=== PATIENT | male | born 1970 | race Caucasian/White ===

== ENCOUNTER → 2017-05-25 | Outpatient (REF) ==
[~2017-05-25] MED LIST: CLINDAMYCIN300 MG PO; INDOCIN SR 75MG75 MG PO; METOPROLOL SR50 MG PO; MOTRIN600 MG PO; NORCO 325 MG-51 TAB PO; PEPCID 20MG TAB20 MG PO; PRINIVIL20 MG PO
== END ==
LOC: WSOH 16:00
DX: Z02.89 Encounter for other administrative examinations (principal)

== ENCOUNTER → 2019-07-22 | Outpatient (CLI) | payer OTHER ==
[~2019-07-22] MED LIST changes: +ASPIRIN 81M81 MG/TA2 PO; +DEMADEX 20MG20 M1 PO; +ENTRESTO 49 MG1 EACH PO; +LIPITOR 40MG TA40 MG PO; +NORVASC 5MG5 MG/TAB PO; +TOPROL XL 25MG25 MG PO
== END ==
LOC: COL.RAD 09:58 → COL.LAB 09:58
DX: M77.31 Calcaneal spur, right foot (principal)

== ENCOUNTER 2020-05-12 08:14 | Emergency (ER) | payer OTHER ==
[~2020-05-12] VITALS: Ht 170.2 cm; Wt 77.3 kg
[2020-05-12 08:14] VITALS: TEMP 98.1
[2020-05-12] MEDS ORDERED: ASPIRIN 32325 MG/TAB PO (08:29)
[2020-05-12] MEDS ORDERED: NORVASC 10MG10 MG PO (08:29)
[2020-05-12] MEDS ORDERED: TOPROL XL100 MG PO (08:39)
[2020-05-12] MEDS ORDERED: DEMADEX10 MG PO (08:40)
[2020-05-12 08:45] LABS: HEMATOCRIT 43.9 % (42.0-52.0); MEAN CELL VOLUME 87 fl (80.0-100.0); MEAN CORPUSCULAR HEMOGLOBIN 30 pg (27.0-31.0); MEAN CORPUSCULAR HGB CONC 34 g/dl (33.0-37.0); MEAN PLATELET VOLUME 9.3 fl (7.4-10.4); PLATELET COUNT 296 K/mm3 (130-400); RED BLOOD COUNT 5.05 M/mm3 (4.20-5.60); REDCELL DISTRIBUTION WIDTH-CV 11.9 % (11.5-14.5)
[2020-05-12 08:59] LABS: ALBUMIN 3.7 gm/dL (3.5-5.0); BILIRUBIN,TOTAL 0.7 mg/dL (0.0-1.0); CALCIUM 8.7 mg/dL (8.4-10.2); CREATININE, serum 1.36 (0.66-1.25); TOTAL PROTEIN 7.9 gm/dL (6.4-8.2)
[2020-05-12 09:10] LABS: C-REACTIVE PROTEIN 25.4 mg/dL (0.0-0.9)
[2020-05-12 09:33] LABS: BAND 7 % (0-10); BASOPHIL 1 % (0-2); LYMPHOCYTE 11 % (20.0-51.0); NEUTROPHILS 73 % (42.0-75.2); PLATELET ESTIMATE NORMAL (NORMAL)
[2020-05-12 09:43] LABS: SYNOVIAL FL. MONONUCLEAR 8.7 % (0-75); SYNOVIAL FLUID RBC 43000 /mm3 (0-0); SYNOVIAL FLUID WBC 18327 /mm3 (200-600)
[2020-05-12 09:45] LABS: SYNOVIAL FLUID APPEARANCE HAZY; SYNOVIAL FLUID COLOR RED
[2020-05-12 11:02] VITALS: BP 139/83; PULSE 92
[2020-05-13] MEDS ORDERED: PREDNISONE20 MG PO (14:42)
[2020-05-13] MEDS ORDERED: NORCO 325 MG-51 TAB PO (14:42)
== END 2020-05-12 11:24 | disposition home or self-care (01) ==
LOC: COL.ER 08:14
PROVIDERS: Emergency Medicine
DX: M25.561 Pain in right knee (principal); M25.562 Pain in left knee; I10 Essential (primary) hypertension; I50.9 Heart failure, unspecified; Z79.82 Long term (current) use of aspirin
CPT/HCPCS: J2270; J7040

== ENCOUNTER → 2020-08-12 | Outpatient (CLI) | payer OTHER ==
[~2020-08-12] MED LIST changes: +ASPIRIN 32325 MG/TAB PO; +DEMADEX10 MG PO; +NORVASC 10MG10 MG PO; +PREDNISONE20 MG PO; +TOPROL XL100 MG PO
[2020-08-12 11:20] LABS: ALBUMIN 4.3 gm/dL (3.5-5.0); BILIRUBIN,TOTAL 0.5 mg/dL (0.0-1.0); CHOLESTEROL RISK RATIO 2.9; CREATININE, serum 1.28 (0.66-1.25); POTASSIUM 3.6 mmol/L (3.4-5.0); TOTAL PROTEIN 7.8 gm/dL (6.4-8.2); URIC ACID 5.6 mg/dL (3.5-8.5)
[2020-08-12 11:48] LABS: THYROID STIMULATING HORMONE 1.03 uIU/mL (0.465-4.680)
== END ==
LOC: COL.LAB 09:39
PROVIDERS: Family Medicine
DX: Z13.29 Encounter for screening for other suspected endocrine disorder (principal); E78.5 Hyperlipidemia, unspecified; M10.9 Gout, unspecified

== ENCOUNTER → 2020-12-06 | Outpatient (CLI) | payer OTHER | LOC: COL.RAD | DX: R79.89 Other specified abnormal findings of blood chemistry (principal) ==

== ENCOUNTER → 2021-01-05 | Outpatient (CLI) | payer OTHER | LOC: COL.VAS 12:05 | DX: R79.89 Other specified abnormal findings of blood chemistry (principal) ==

== ENCOUNTER 2024-06-12 09:51 | Inpatient (IN) | payer OTHER ==
[2024-06-12] VITALS (324 sets, daily range): BP systolic 145–186; BP diastolic 91–134; PULSE 89–109; TEMP 98–98.1; O2SAT 89–100
[~2024-06-12] VITALS: Ht 170.2 cm; Wt 77.7 kg
[2024-06-12 10:30] LABS: ARTERIAL BLD GAS O2 SATURATION 96.7 % (92-100); ARTERIAL BLOOD GAS BASE EXCESS -5.6 (-2-2); ARTERIAL BLOOD GAS HCO3 14.4 meq/L (22-26); ARTERIAL BLOOD GAS PO2 81.7 mmHg (80-100)
[2024-06-12 10:31] LABS: ARTERIAL BLOOD GAS PCO2 18.9 mmHg (35-45)
[2024-06-12 10:40] LABS: ALBUMIN 2.9 g/dL (3.5-5.0); BILIRUBIN,TOTAL 2.5 mg/dL (0.2-1.2); CALCIUM 8.9 mg/dL (8.4-10.2); CREATININE, serum 2.57 mg/dL (0.72-1.25); POTASSIUM 3.5 mEq/L (3.5-4.5); TOTAL PROTEIN 6.4 g/dl (6.2-8.1)
[2024-06-12 10:49] LABS: HEMATOCRIT 50.7 % (42.0-52.0); HEMOGLOBIN 16.5 g/dl (13.5-18.0); MEAN CELL VOLUME 88 fl (80.0-100.0); MEAN CORPUSCULAR HEMOGLOBIN 29 pg (27-31); MEAN CORPUSCULAR HGB CONC 33 g/dl (33.0-37.0); MEAN PLATELET VOLUME 9.8 fl (7.4-10.4); PLATELET COUNT 174 K/mm3 (130-400); RED BLOOD COUNT 5.75 M/mm3 (4.20-5.60); REDCELL DISTRIBUTION WIDTH-CV 15.3 % (11.5-14.5)
[2024-06-12 11:07] LABS: TROPONIN-I 0.625 ng/mL (0.00-0.033)
[2024-06-12 11:30] LABS: THYROID STIMULATING HORMONE 4.561 uIU/mL (0.350-4.940)
[2024-06-12] MEDS ORDERED: hydrALAZINE 20 MG/ML 1 ML VIAL IV ONE (11:30)
[2024-06-12] MEDS ORDERED: niCARdipine 200 ML IV ONE (11:45)
[2024-06-12] MEDS ORDERED: Furosemide 40 MG/4 ML VIAL IV ONE (11:45)
[2024-06-12 13:22] LABS: URINE APPEARANCE CLEAR (CLEAR/HAZY); URINE BLOOD 2+ (NEGATIVE); URINE COLOR YELLOW (YELLOW); URINE GLUCOSE NEGATIVE (NEGATIVE); URINE KETONE NEGATIVE (NEGATIVE); URINE NITRATE NEGATIVE (NEGATIVE); URINE PROTEIN(semi-quant) 3+ (NEGATIVE)
[2024-06-12 13:42] LABS: URINE WBC 0-2 /hpf (0-2)
[2024-06-12 13:43] LABS: MUCOUS PRESENT (NOT PRESENT); SQUAMOUS EPITHELIAL 0-2 /hpf (0-10); URINE BACTERIA OCCASIONAL /hpf (NONE SEEN)
[2024-06-12 13:44] LABS: COLLECTION METHOD CLEAN CATCH
[2024-06-12] MEDS ORDERED: Acetaminophen 325 MG TAB PO PRN (14:45)
[2024-06-12] MEDS ORDERED: Ondansetron 4 MG/2 ML VIAL IV PRN (14:45)
[2024-06-12] MEDS ORDERED: Heparin 5,000 UNITS/ML 1 ML VIAL SQ SCH (16:00)
[2024-06-12] MEDS ORDERED: Furosemide 100 MG in NS 100 ML IV SCH (16:30)
[2024-06-12] MEDS ORDERED: Carvedilol 3.125 MG TAB PO SCH (17:00)
--- NOTE | 2024-06-12 20:00 | NUR ---
Pt resting quietly in bed. VSS. IV infusing to L AC with lasix gtt per order. Pt does not complain of pain or discomfort at this time. Evening assessment completed with difficulty. Evening medications administered without difficulty. Pt able to reposition self on own. Urinal at bedside that pt has been using without difficulty. Will continue to monitor edema levels in UE, LE, and trunk areas. Pt does not have any questions or concerns at this time.
[2024-06-12] MEDS ORDERED: Atorvastatin 80 MG TAB PO SCH (21:00)
[2024-06-13] VITALS (699 sets, daily range): BP systolic 107–163; BP diastolic 70–123; PULSE 75–99; TEMP 97.8–98.4; O2SAT 84–100
[2024-06-13 04:26] LABS: BASO # 0.1 K/mm3 (0.0-0.2); BASO % 1.4 % (0.0-2.0); EOS # 0.4 K/mm3 (0.0-0.7); EOS % 7.4 % (0.0-4.0); GRAN # 3.2 K/mm3 (1.4-6.5); HEMATOCRIT 41.6 % (42.0-52.0); LYMPH # 1.7 K/mm3 (1.2-3.4); LYMPH % 29.8 % (20.0-51.0); MEAN CELL VOLUME 86 fl (80.0-100.0); MEAN CORPUSCULAR HEMOGLOBIN 29 pg (27-31); MEAN CORPUSCULAR HGB CONC 34 g/dl (33.0-37.0); MEAN PLATELET VOLUME 9.9 fl (7.4-10.4); MONO # 0.4 K/mm3 (0.1-0.6); MONO % 7.2 % (1.7-9.3); PLATELET COUNT 144 K/mm3 (130-400); RED BLOOD COUNT 4.82 M/mm3 (4.20-5.60); REDCELL DISTRIBUTION WIDTH-CV 14.6 % (11.5-14.5)
[2024-06-13 04:43] LABS: ALBUMIN 2.4 g/dL (3.5-5.0); BILIRUBIN,TOTAL 2.1 mg/dL (0.2-1.2); CALCIUM 8.1 mg/dL (8.4-10.2); CREATININE, serum 2.22 mg/dL (0.72-1.25); TOTAL PROTEIN 5.2 g/dl (6.2-8.1)
[2024-06-13] MEDS ORDERED: *Potassium Replacement Protocol MC SCH (05:00)
[2024-06-13] MEDS ORDERED: Spironolactone 25 MG TAB PO SCH (09:00)
[2024-06-13] MEDS ORDERED: Carvedilol 3.125 MG TAB PO ONE (09:00)
--- NOTE | 2024-06-13 09:25 | NUR ---
STUDENT VERIFIED MEDS WITH STAFF NURSE, WAYNE PADILLA.
[2024-06-13] MEDS ORDERED: hydrALAZINE 20 MG/ML 1 ML VIAL IV PRN (13:00)
--- NOTE | 2024-06-13 14:59 | NUR ---
hot tamale worker met with patient to discuss discharge planning. 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 Patient plans to return home and back to work when he is medically cleard to do so. Patient is not and does not have any children. Worker provided written and verbal information on advance directives and [place] legal services as patient needs to do Will planning. Patient states he hasn't been taking his medications due to cost and states Entresto is not covered and too expensive for him. Worker advised that we could assist with Hospital financial program if needed. Will follow and determine medications upon discharge for assistance. Patient's primary care provider is Dr Gary. Discharge planning: Home and return to work.
--- NOTE | 2024-06-13 16:00 | NUR ---
Pt arrived to medical floor from ICU, report received from WAYNE Mercer. Pt is A&O x4. Shift assessment completed. +2 BLE edema noted. Lung sounds clear to auscultation. BS active x4. Pt denies pain at this time rating 0/10. VSS. Oriented pt to room, call light, and bathroom. Pt has no request at this time. Call light within reach.
[2024-06-13] MEDS ORDERED: Carvedilol 6.25 MG TAB PO SCH (17:00)
--- NOTE | 2024-06-13 21:30 | NUR ---
Scheduled meds administered per NOV. Shift assessment complete. Noted edema to BLE pitting +1. Pt. states swelling is improving. Pt. denies pain at this time. No further outstanding findings. Pt. resting in recliner w/ call light in reach. No complaints or requests at this time.
[2024-06-14 04:00] VITALS: BP 127/86; PULSE 78; TEMP 97.4
--- NOTE | 2024-06-14 04:53 | NUR ---
Pt. rested in recliner through the night w/ eyes closed at various times; respirations even and unlabored. Pt. denied pain or requests during the night. Currently resting in recliner w/ eyeys open at this time. Call light in reach.
[2024-06-14 06:37] LABS: BASO % 0.6 % (0.0-2.0); EOS # 0.4 K/mm3 (0.0-0.7); EOS % 6.8 % (0.0-4.0); GRAN # 3.1 K/mm3 (1.4-6.5); GRAN % 58.7 % (42.2-75.2); HEMATOCRIT 42.3 % (42.0-52.0); LYMPH # 1.4 K/mm3 (1.2-3.4); LYMPH % 26.7 % (20.0-51.0); MEAN CELL VOLUME 87 fl (80.0-100.0); MEAN CORPUSCULAR HEMOGLOBIN 29 pg (27-31); MEAN CORPUSCULAR HGB CONC 33 g/dl (33.0-37.0); MEAN PLATELET VOLUME 10.1 fl (7.4-10.4); MONO # 0.4 K/mm3 (0.1-0.6); PLATELET COUNT 154 K/mm3 (130-400); RED BLOOD COUNT 4.84 M/mm3 (4.20-5.60); REDCELL DISTRIBUTION WIDTH-CV 14.7 % (11.5-14.5)
[2024-06-14 06:53] LABS: ALBUMIN 2.2 g/dL (3.5-5.0); BILIRUBIN,TOTAL 1.5 mg/dL (0.2-1.2); CALCIUM 7.6 mg/dL (8.4-10.2); CREATININE, serum 2.14 mg/dL (0.72-1.25); POTASSIUM 3.2 mEq/L (3.5-4.5)
--- NOTE | 2024-06-14 06:58 | NUR ---
Bedside report received from ROSANNE Sparks. Pt resting in bed with eyes closed and no complaints. Call light within reach.
[2024-06-14 08:00] VITALS: BP 147/95; PULSE 84; TEMP 97.7
[2024-06-14] MEDS ORDERED: Potassium Bicarbonate/Citrate 20 MEQ Effervescent TAB PO SCH (09:00)
--- NOTE | 2024-06-14 09:52 | NUR ---
Pt awake in bed visiting with mother at bedside. Shift assssment completed. VSS. +2 BLE edema noted in assessment. Lasix gtt infusing into Rt forearm as ordered with no complications. INT to Lt AC patent with no swelling, redness, or drainage. Pt ambulates independently in room with no complications. Tele monitor Max called this nurse stating leads were off pt. Pt assessed and leads back in place. Pt has no request at this time. Call light within reach.
[2024-06-14 10:18] LABS: CHOLESTEROL RISK RATIO 4.2
[2024-06-14 11:47] VITALS: BP 144/96; PULSE 85; TEMP 98.4
--- NOTE | 2024-06-14 12:09 | NUR ---
Data: Patient accepted spiritual care visit offered during Heading And Priming Operator rounds. 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 Assessment: Reflecting on the meaning of this illness. Plan of Care: Heading And Priming Operator provided pastoral counseling; supportive listening; and prayer. Chaplains will remain available as needed/requested while Patient is admitted to this hospital.
[2024-06-14 15:40] VITALS: BP 131/91; PULSE 84; TEMP 97.9
--- NOTE | 2024-06-14 19:00 | NUR ---
Bedside report given to ROSANNE Sparks. Pt awake in bed with no complaints. Call light within reach.
[2024-06-14 20:00] VITALS: BP 125/86; PULSE 79; TEMP 97.9
--- NOTE | 2024-06-14 20:45 | NUR ---
Scheduled meds administered per NOV. Shift assessment complete. BLE are edematous pitting +2. Bowel sounds are hypoactive. Pt. states he is not passing much flatus; however, pt. endorses BM earlier today. No further outstanding findings. Pt. denies pain at this time. No complaints or requests. Call light in reach.
--- NOTE | 2024-06-14 22:00 | NUR ---
Pt. called to report he was bleeding. Upon exam pt's IV to Rt. forearm had come out of place. Stopped IV meds and discontinued IV. Catheter tip intact. Site dressed w/ gauze and tape. Attempted to flush pt's IV at Lt antecubital and noted leaking from site. Discontinued second IV. Catheter tip intact. Site dressed w/ gauze and coban. Inserted new IV- 20g to Rt. forearm. Pt. tolerated well. IV lasiks resumed.
[2024-06-15] VITALS (10 sets, daily range): BP systolic 115–148; BP diastolic 72–106; PULSE 77–84; TEMP 97.3–98.6
--- NOTE | 2024-06-15 01:35 | NUR ---
PCT reported pt.'s BP was 144/106. This nurse reassessed pt. Upon entry he is resting in bed w/ eyes closed; respirations even and unlabored. Pt. denies headache, states he feels, "fine." BP is 148/106. RN administered PRN Hydralazine per NOV. This nurse reassessed pt. BP is now 117/72. Pt. resting in bed w/ call light in reach.
--- NOTE | 2024-06-15 05:09 | NUR ---
Pt. rested soundly through the night with eyes closed, respirations even and unlabored. Blood pressure remained at pt's baseline following hydralazine administration. No complaints or requests. Call light in reach.
[2024-06-15 06:44] LABS: BASO % 0.6 % (0.0-2.0); EOS # 0.3 K/mm3 (0.0-0.7); EOS % 6.5 % (0.0-4.0); GRAN # 2.4 K/mm3 (1.4-6.5); GRAN % 51.4 % (42.2-75.2); HEMATOCRIT 38.9 % (42.0-52.0); HEMOGLOBIN 13.4 g/dl (13.5-18.0); LYMPH # 1.6 K/mm3 (1.2-3.4); LYMPH % 33.1 % (20.0-51.0); MEAN CELL VOLUME 86 fl (80.0-100.0); MEAN CORPUSCULAR HEMOGLOBIN 30 pg (27-31); MEAN CORPUSCULAR HGB CONC 34 g/dl (33.0-37.0); MEAN PLATELET VOLUME 9.3 fl (7.4-10.4); MONO # 0.4 K/mm3 (0.1-0.6); MONO % 8.2 % (1.7-9.3); PLATELET COUNT 145 K/mm3 (130-400); RED BLOOD COUNT 4.54 M/mm3 (4.20-5.60); REDCELL DISTRIBUTION WIDTH-CV 14.6 % (11.5-14.5)
[2024-06-15 07:09] LABS: ALBUMIN 2.4 g/dL (3.5-5.0); BILIRUBIN,TOTAL 1.2 mg/dL (0.2-1.2); CALCIUM 7.2 mg/dL (8.4-10.2); CREATININE, serum 2.21 mg/dL (0.72-1.25); POTASSIUM 3.6 mEq/L (3.5-4.5); TOTAL PROTEIN 5.2 g/dl (6.2-8.1)
[2024-06-15] MEDS ORDERED: Potassium Bicarbonate/Citrate 20 MEQ Effervescent TAB PO SCH (07:30)
--- NOTE | 2024-06-15 09:37 | NUR ---
PT RESTING IN BED, ALERT AND ORIENTEDX4. NO COMPLAINTS OF PAIN AT THIS TIME. ASSESSED PT. PITTING EDEMA IN BILATERAL LOWER EXTREMETIES. LASIX DRIP RUNNING AT 11. PT BP WAS 143/100. GAVE HYDRALAZINE. BP WENT DOWN TO 119/77. REPLACING POTASSIUM ORALLY. GAVE MORNING MEDS. NO OTHER COMPLAINTS AT THIS TIME. CALL LIGHT WITHIN REACH.
[2024-06-15] MEDS ORDERED: Carvedilol 6.25 MG TAB PO ONE (10:30)
[2024-06-15] MEDS ORDERED: Magnesium Sulfate 8% 50 ML IV ONE (16:45)
[2024-06-15] MEDS ORDERED: Furosemide 40 MG/4 ML VIAL IV SCH (17:00)
[2024-06-15] MEDS ORDERED: Carvedilol 6.25 MG TAB PO SCH (17:00)
--- NOTE | 2024-06-15 21:15 | NUR ---
Patient resting in bed. Denies any pain. Snack provided. Assessment complete. IV in left forearm flushes easlily without complications. Call light and personal items in reach. Bed in low position.
[2024-06-16] VITALS (12 sets, daily range): BP systolic 116–144; BP diastolic 80–95; PULSE 67–77; TEMP 97.4–98.4
[2024-06-16 07:09] LABS: BASO % 0.6 % (0.0-2.0); EOS # 0.3 K/mm3 (0.0-0.7); EOS % 6.4 % (0.0-4.0); GRAN # 2.2 K/mm3 (1.4-6.5); GRAN % 45.9 % (42.2-75.2); HEMATOCRIT 41.2 % (42.0-52.0); HEMOGLOBIN 13.9 g/dl (13.5-18.0); LYMPH # 1.9 K/mm3 (1.2-3.4); LYMPH % 38.7 % (20.0-51.0); MEAN CELL VOLUME 86 fl (80.0-100.0); MEAN CORPUSCULAR HEMOGLOBIN 29 pg (27-31); MEAN CORPUSCULAR HGB CONC 34 g/dl (33.0-37.0); MEAN PLATELET VOLUME 10.4 fl (7.4-10.4); MONO # 0.4 K/mm3 (0.1-0.6); MONO % 8.2 % (1.7-9.3); PLATELET COUNT 170 K/mm3 (130-400); REDCELL DISTRIBUTION WIDTH-CV 14.6 % (11.5-14.5)
[2024-06-16 07:27] LABS: ALBUMIN 2.6 g/dL (3.5-5.0); CALCIUM 7.9 mg/dL (8.4-10.2); CREATININE, serum 2.62 mg/dL (0.72-1.25); MAGNESIUM 2.1 mg/dL (1.6-2.6); POTASSIUM 4.1 mEq/L (3.5-4.5); TOTAL PROTEIN 5.9 g/dl (6.2-8.1)
--- NOTE | 2024-06-16 08:10 | NUR ---
Patient sitting up in chair, alert and oriented x 4, denies any pain or discomfort. States that his BLE edema is improving. Had all his breakfast. Assessment completed, meds given. No further needs at this time. Call light within reach.
--- NOTE | 2024-06-16 12:22 | NUR ---
SW sent clinicals and order for life vest to [facility]. Discharge plan: Home
--- NOTE | 2024-06-16 15:11 | NUR ---
KENAN called [facility] to follow up on order. KENAN was told that they need a copy of patient's insurance card. Insurance card faxed as requested.
--- NOTE | 2024-06-16 16:33 | NUR ---
community mental health worker was contacted by [facility] that they needed the patient's insurance card. SW faxed the front and back of the card to [facility]. Discharge plan: Home with lifevest
--- NOTE | 2024-06-16 20:50 | NUR ---
Patient resting in bed. Denies any pain or needs at this time. Assessment complete. IV in left forearm flushes easily without complications. Call light and personal items in reach. Bed in low position.
[2024-06-17] VITALS (12 sets, daily range): BP systolic 130–143; BP diastolic 89–99; PULSE 67–77; TEMP 97.5–98.1
[2024-06-17 07:18] LABS: BASO % 0.8 % (0.0-2.0); EOS # 0.3 K/mm3 (0.0-0.7); EOS % 5.4 % (0.0-4.0); GRAN # 2.2 K/mm3 (1.4-6.5); GRAN % 45.2 % (42.2-75.2); HEMATOCRIT 38.6 % (42.0-52.0); LYMPH % 40.6 % (20.0-51.0); MEAN CELL VOLUME 86 fl (80.0-100.0); MEAN CORPUSCULAR HEMOGLOBIN 29 pg (27-31); MEAN CORPUSCULAR HGB CONC 34 g/dl (33.0-37.0); MEAN PLATELET VOLUME 9.4 fl (7.4-10.4); MONO # 0.4 K/mm3 (0.1-0.6); MONO % 7.8 % (1.7-9.3); PLATELET COUNT 153 K/mm3 (130-400); RED BLOOD COUNT 4.47 M/mm3 (4.20-5.60); REDCELL DISTRIBUTION WIDTH-CV 14.5 % (11.5-14.5)
--- NOTE | 2024-06-17 07:29 | NUR ---
Bedside report received from WAYNE Jimenez. Pt resting in bed awake with no complaints. Call light within reach.
[2024-06-17 07:40] LABS: CALCIUM 7.8 mg/dL (8.4-10.2); CREATININE, serum 2.46 mg/dL (0.72-1.25); MAGNESIUM 1.9 mg/dL (1.6-2.6); POTASSIUM 4.1 mEq/L (3.5-4.5)
[2024-06-17] MEDS ORDERED: Furosemide 40 MG/4 ML VIAL IV SCH (08:00)
--- NOTE | 2024-06-17 09:30 | NUR ---
Pt awake in bed eating breakfast. Shift assessment completed. VSS. INT to Lt forearm patent with no swelling, redness, or drainage. Pt denies pain at this time rating 0/10. Telemetry in place. Pt has no request at this time. Call light within reach.
--- NOTE | 2024-06-17 11:46 | NUR ---
KENAN called [employer] to inquire about approval of life vest. Patient ready for discharge per report in medical rounds. Rep reported that patient has been approved and the vest is set for delivery. The rep will contact KENAN Jaimes with ETA of arrival to fit patient for vest. KENAN Jaimes notified. Discharge plan: Home
[2024-06-17] MEDS ORDERED: ENTRESTO 24 MG1 EACH PO (13:35)
[2024-06-17] MEDS ORDERED: ASPIRIN E.C. 8181 MG PO (13:35)
[2024-06-17] MEDS ORDERED: LIPITOR 80MG80 MG PO (13:35)
[2024-06-17] MEDS ORDERED: ALDACTONE 25MG25 M1 PO (13:35)
[2024-06-17] MEDS ORDERED: COREG12.5 MG PO (13:35)
--- NOTE | 2024-06-17 17:45 | NUR ---
binding bench worker was notified the life vest was approved and they would be setting patient up with life vest fitting today. KENAN notified patient's nurse. KENAN contacted [employer] and confirmed the medications would cost $706.33. KENAN confirmed the [facility] would cover the cost of this medication for the month supply. SW notified patient of pickle maker location and that he would be responsible for the next month supply. KENAN provided the 30 day supply trial copay card from the [employer] website. SW also informed the patient that his medication has a patient financial assistance program that he could apply for. Patient understood. Medication voucher for the hospital expires 06/20/24, social work manager has notified patient of this information. SW was notified the [employer] company would not be fitting patient until . KENAN contacted the life vest company and explained patient is medically ready for discharge and he needs the life vest. KENAN explained they would need this today. [employer]est product representative stated they would change the product representative to someone that could meet with patient today. Discharge plan: Home with lifevest and medication voucher
[2024-06-18] VITALS (8 sets, daily range): BP systolic 143–169; BP diastolic 89–117; PULSE 69–76; TEMP 97.2–97.9
[2024-06-18 07:13] LABS: BASO # 0.1 K/mm3 (0.0-0.2); BASO % 1.1 % (0.0-2.0); EOS # 0.2 K/mm3 (0.0-0.7); EOS % 4.4 % (0.0-4.0); GRAN # 2.1 K/mm3 (1.4-6.5); GRAN % 46.6 % (42.2-75.2); HEMATOCRIT 37.8 % (42.0-52.0); HEMOGLOBIN 12.5 g/dl (13.5-18.0); LYMPH # 1.7 K/mm3 (1.2-3.4); LYMPH % 38.4 % (20.0-51.0); MEAN CELL VOLUME 88 fl (80.0-100.0); MEAN CORPUSCULAR HEMOGLOBIN 29 pg (27-31); MEAN CORPUSCULAR HGB CONC 33 g/dl (33.0-37.0); MEAN PLATELET VOLUME 10.3 fl (7.4-10.4); MONO # 0.4 K/mm3 (0.1-0.6); MONO % 9.3 % (1.7-9.3); PLATELET COUNT 154 K/mm3 (130-400); RED BLOOD COUNT 4.29 M/mm3 (4.20-5.60); REDCELL DISTRIBUTION WIDTH-CV 14.6 % (11.5-14.5)
[2024-06-18 07:26] LABS: CALCIUM 7.7 mg/dL (8.4-10.2); CREATININE, serum 2.32 mg/dL (0.72-1.25); POTASSIUM 4.1 mEq/L (3.5-4.5)
--- NOTE | 2024-06-18 07:41 | NUR ---
Bedside report received from WAYNE Jimenez. Pt resting in bed awake with no complaints. Call light within reach.
--- NOTE | 2024-06-18 10:00 | NUR ---
Pt awake in recliner with no complaints. Shift assessment completed. VSS. Pt denies pain at this time rating 0/10. INT to Lt forearm patent with no swelling, redness, or drainage. Telemetry in place. Pt has no request at this time. Call light within reach.
[2024-06-18] MEDS ORDERED: LASIX 20MG TABL20 MG PO (11:56)
[2024-06-18] MEDS ORDERED: ENTRESTO 49 MG1 EACH PO (12:52)
--- NOTE | 2024-06-18 14:45 | NUR ---
Discharge instructions provided to pt and pt verbalized understanding of discharge paperwork. INT to Lt forearm discontinued by [employer] student with tip intact. Pt tolerated well with no complaints. Lifevest in place. Pt is leaving facility by personal vechicle back to home.
--- NOTE | 2024-06-18 16:08 | NUR ---
utility service worker was notified patient's life vest was not fitted yesterday. KENAN contacted the life vest company and explained patient is ready for discharge and was informed yesterday that he would be fitted then. KENAN was informed they would speak with the retail sales representative, Roberth, and get patient fitted today, so he can discharge. KENAN notified patient's nurse. KENAN was notified patient will be fitted for the life vest at 1:30 pm. KENAN was notified patient needs Lasix PRN. KENAN received the updated total of $717.24. KENAN was notified the Entresto script needed to be updated otherwise his Entresto would be around $1,200 for 2 tablets twice a day. KENAN spoke with Dr. Reno about this and patient's script will be updated to Entresto 4951 one tablet twice a day, $658.80. Total for all medications is $717.24. KENAN faxed updated scripts and medication voucher to [facility]. Discharge plan: Home with life vest and med voucher
== END 2024-06-18 14:45 | disposition home or self-care (01) | DRG 280 ==
LOC: COL.ER 09:51 → MEDICAL 11:38 → ICU 11:38 → MEDICAL 06-13 15:35
PROVIDERS: Family Medicine; Hospitalist; Physician Assistant; ADMIT Emergency Medicine
DX: I13.0 Hypertensive heart and chronic kidney disease with heart failure and stage 1 through stage 4 chronic kidney disease, or unspecified chronic kidney disease (principal); I50.23 Acute on chronic systolic (congestive) heart failure; I21.A1 Myocardial infarction type 2; J96.01 Acute respiratory failure with hypoxia; N17.9 Acute kidney failure, unspecified; I31.39 Other pericardial effusion (noninflammatory); I16.1 Hypertensive emergency; E87.20 Acidosis, unspecified; Z66 Do not resuscitate; I42.8 Other cardiomyopathies; E87.6 Hypokalemia; N18.30 Chronic kidney disease, stage 3 unspecified; R35.0 Frequency of micturition; I34.0 Nonrheumatic mitral (valve) insufficiency; E78.5 Hyperlipidemia, unspecified; Z87.891 Personal history of nicotine dependence; Z91.148 Patient's other noncompliance with medication regimen for other reason; Z79.82 Long term (current) use of aspirin; Z79.899 Other long term (current) drug therapy; Z23 Encounter for immunization
CPT/HCPCS: J0360; J1644; J1940; J2404; J3475

== ENCOUNTER 2024-07-15 07:52 | Day surgery (SDC) | payer OTHER ==
[2024-07-15] VITALS (268 sets, daily range): BP systolic 134–210; BP diastolic 86–149; PULSE 78–96; TEMP 97.9; O2SAT 87–97
[~2024-07-15] VITALS: Ht 170.3 cm; Wt 80.6 kg
[~2024-07-15 07:52] MED LIST changes: +ALDACTONE 25MG25 M1 PO; +ASPIRIN E.C. 8181 MG PO; +COREG12.5 MG PO; +ENTRESTO 24 MG1 EACH PO; +LASIX 20MG TABL20 MG PO; +LIPITOR 80MG80 MG PO; +NS 1,000 ML IV SCH
[2024-07-15] MEDS ORDERED: LIPITOR 80MG80 MG PO (08:34)
--- NOTE | 2024-07-15 09:00 | NUR ---
Suzette RN with Cardiology group notified of elevated BPs, pt is currently set for BPs to cycle q15 mins. Pt also reports shortness of breath with occasional sensation of tightness in throat making it difficult to breath. He denies orthopnea. Sats 93% and above on room air. This information also given to WAYNE Cooney in engineering lab technician. Pt has not taken normal meds since Sunday. He is now resting in bed. Mother at bedside. Call light in reach.
[2024-07-15 09:03] LABS: CALCIUM 8.7 mg/dL (8.4-10.2); CREATININE, serum 2.2 mg/dL (0.72-1.25); POTASSIUM 4.4 mEq/L (3.5-4.5)
[2024-07-15 09:05] LABS: HEMOGLOBIN 14.7 g/dl (13.5-18.0); MEAN CELL VOLUME 88 fl (80.0-100.0); MEAN CORPUSCULAR HEMOGLOBIN 29 pg (27-31); MEAN CORPUSCULAR HGB CONC 33 g/dl (33.0-37.0); MEAN PLATELET VOLUME 9.4 fl (7.4-10.4); PLATELET COUNT 196 K/mm3 (130-400); RED BLOOD COUNT 5.11 M/mm3 (4.20-5.60); REDCELL DISTRIBUTION WIDTH-CV 15.6 % (11.5-14.5)
[2024-07-15 09:07] LABS: INR 1.3 (0.8-3.0); PROTHROMBIN TIME 14.4 SECONDS (9.7-12.8)
[2024-07-15 09:09] LABS: PARTIAL THROMBOPLASTIN TIME 32.8 SECONDS (26.0-37.0)
[2024-07-15] MEDS ORDERED: 1/2 NS 1,000 ML IV SCH (09:15)
[2024-07-15] MEDS ORDERED: Nitroglycerin 2% Topical Oint 1 GM UD TD SCH (09:25)
[2024-07-15] MEDS ORDERED: Lidocaine PF 2% (20 MG/ML) 5 ML VIAL ONE (09:50)
[2024-07-15] MEDS ORDERED: Etomidate 20 MG/10 ML VIAL IV ONE ×2 (09:51)
[2024-07-15] MEDS ORDERED: Heparin 1,000 UNITS/ML 10 ML Multi-Dose VIAL IV SCH (10:51)
[2024-07-15] MEDS ORDERED: niCARdipine (Cath Lab) 100 MCG/ML 10 ML VIAL IA SCH (10:51)
[2024-07-15] MEDS ORDERED: Iohexol 350 - 100 ML VIAL INCOR ONE (11:13)
[2024-07-15] MEDS ORDERED: Midazolam 2 MG/2 ML VIAL IV SCH (11:14)
[2024-07-15] MEDS ORDERED: fentaNYL 50 MCG/ML 2 ML VIAL IV SCH (11:20)
--- NOTE | 2024-07-15 11:43 | NUR ---
Jayden is transferred back to [facility] after TIGIST/LHC with Dr. Ordoñez. He is awake and alert with stable vitals. TR band to rt wrist, cms intact distal. Post procedure monitoring initiated. BS report and handoff of care to Alejandro BLACK
--- NOTE | 2024-07-15 12:15 | NUR ---
Suzette, RN with Cardiology notified of continued elevated blood pressure readings post procedures. Pt has been resting comfortably, free of complaints. Meal tray has been ordered. He has been sipping water. Rt arm resting on pillow, no bleeding or complications at radial access site. TR band in place. Call in reach.
[2024-07-15] MEDS ORDERED: hydrALAZINE 20 MG/ML 1 ML VIAL IV ONE ×2 (12:30→14:45)
--- NOTE | 2024-07-15 14:13 | NUR ---
Suzette, ink blender notified that blood pressures have remained elevated following hydralazine dose. Pt also questioning if someone can evaluate his throat as he has had feeling of constriction in throat leading to feelings of shortness of air over last month. Pt states this is no worse today than usual. Suzette states she'll speak with Dr Ordoñez regarding these issues. Pt otherwise resting comfortably in bed. Call light in reach.
[2024-07-15] MEDS ORDERED: Carvedilol 6.25 MG TAB PO SCH (14:55)
--- NOTE | 2024-07-15 14:55 | NUR ---
Air has been removed from TR band in 2 ml increments, no bleeding or complications at site. It is now dressed with folded 2x2 and bandaid. Per Suzette RN with Cardiology, Dr Ordoñez will be coming to evaluate pt's throat. Otoscope borrowed from ER for evaluation. Additional meds also ordered for continued hyertension. Pt remains free of complaints, aside from tightness in throat and occasional shortness of breath. Mother has returned to bedside. Call light in reach.
[2024-07-15] MEDS ORDERED: Carvedilol 6.25 MG TAB PO ONE (15:00)
[2024-07-15] MEDS ORDERED: ELIQUIS 5MG PO (15:47)
--- NOTE | 2024-07-15 15:57 | NUR ---
Dr Ordoñez in to speak with pt and his mother. Additional medication orders given. Dr Ordoñez states he would like SPB at 160-170 mg/dL prior to discharge.
[2024-07-15] MEDS ORDERED: Menthol Cough/Sore Throat LOZENGE MM PRN (16:00)
[2024-07-15] MEDS ORDERED: dilTIAZem 25 MG/5 ML VIAL IV ONE (16:00)
--- NOTE | 2024-07-15 16:41 | NUR ---
Pt continues to rest comfortably in bed. He ate crackers with previous pills, denies desire for dinner tray. He has used urinal 3 times. Has denied desire to get up out of bed. His mother has left to go to pharmacy to fill new rx, and will return for ride home. Will continue to monitor blood pressures with goal of SBP of 160-170 mg/dL prior to discharge. Pt is aware of this. IVF continues at 100ml/hr per Dr Ordoñez's order. Rt radial puncture site remains unchanged, and pt is free of other complaints at this time. Pt report given to WYANE Clifford who will take over monitoring of pt. Pt's call light in reach.
--- NOTE | 2024-07-15 18:13 | NUR ---
10 MG OF IV CARDENE ADMINISTERED PER DR. [place] ORDERS. PT TOLERATED INFUSION WELL AND SBP CHANGED FROM 200'S TO 140'S. PT WAS MONITORED FOLLOWING CARDENE INFUSION AND STATED NO NEW FEELINGS OF DIZZINESS, NAUSEA, OR LIGHTHEADEDNESS. DR LAU WAS PAGED AND NOTIFIED OF DECREASE IN BLOOD PRESSURE. SID SAID THAT PT COULD BE DISCHARGED LONG HE DID NOT VERBALIZE ANY NEW OR WORSENING SYMPTOMS. PT STATED THAT HE CONTINUED TO FEEL HE HAD ALL DAY. IV WAS DISCONTINUED AND PT WAS ASSISTED TO ER EXIT VIA WHEELCHAIR WHERE HIS MOTHER WAS WAITING TO DRIVE HIM HOME. PT STATED THAT HE KNOWS HE WILL NEED TO REPORT TO [facility] TOMORROW MORNING FOR FURTHER BLOOD PRESSURE TESTING.
[2024-07-16] MEDS ORDERED: Carvedilol 6.25 MG TAB PO SCH (08:00)
== END 2024-07-15 18:18 | disposition home or self-care (01) ==
LOC: COL.CAR 07:52
PROVIDERS: Internal Medicine Cardiovascular Disease
DX: I42.8 Other cardiomyopathies (principal); N18.9 Chronic kidney disease, unspecified; I15.0 Renovascular hypertension; E78.2 Mixed hyperlipidemia; I08.0 Rheumatic disorders of both mitral and aortic valves; Z79.899 Other long term (current) drug therapy; Z79.82 Long term (current) use of aspirin; Z95.811 Presence of heart assist device
CPT/HCPCS: C1769; J0360; J1644; J2250; J2404; J2704; J3010; J7030; Q9967